=== PATIENT | male | born 1995 | race Caucasian/White ===

== ENCOUNTER 2024-05-02 16:53 | Emergency (ER) | payer OTHER ==
[~2024-05-02] VITALS: Ht 177.8 cm; Wt 106.0 kg
[2024-05-02 16:58] VITALS: O2SAT 99
[2024-05-02] MEDS ORDERED: ONDANSETRON 4MG ODT PO ONE (18:15)
[2024-05-02 19:54] LABS: BASOPHILS % 0.3 % (0.0-2.0); HEMATOCRIT. 45.5 % (42.0-52.0); HEMOGLOBIN. 15.4 g/dL (14.0-18.0); LYMPHOCYTES % 8.3 % (20.0-50.0); MEAN CORPUSCULAR HEMOGLOBIN 31.2 pg (28.0-32.0); MEAN CORPUSCULAR HGB CONC 33.8 g/dL (31.0-37.0); MEAN CORPUSCULAR VOLUME 92.4 fL (80.0-94.0); MEAN PLATELET VOLUME 9.1 fl (7.4-10.4); MONOCYTES % 3.1 % (2.0-8.0); NEUTROPHILS % 88.3 % (40.0-76.0); PLATELET 253 x1000/uL (130-400); RED BLOOD CELL COUNT 4.93 mill/uL (4.7-6.1); RED CELL DISTRIBUTION WIDTH 13.3 % (11.6-14.6); WHITE BLOOD COUNT 11.5 x1000/uL (4.5-11.0)
[2024-05-02 20:06] LABS: CHLORIDE 107 mEq/L (98-107); POTASSIUM 4.6 mEq/L (3.5-5.1); SODIUM 140 mEq/L (136-145)
[2024-05-02 20:07] LABS: CALCIUM 9.6 mg/dL (8.7-10.4); CARBON DIOXIDE 26 mEq/L (21-32)
[2024-05-02 20:12] LABS: CREATININE 1.1 mg/dL (0.6-1.3); GLUCOSE 126 mg/dL (70-105); UREA NITROGEN BLOOD 13 mg/dL (9-23)
[2024-05-02 20:14] LABS: ALANINE AMINOTRANSFERASE 44 IU/L (10-49); ALBUMIN 4.9 g/dL (3.2-4.8); ASPARTATE AMINOTRANSFERASE 29 IU/L (<34); BILIRUBIN TOTAL 0.7 mg/dL (0.1-1.0); PROTEIN TOTAL 7.6 g/dL (6.0-8.3)
[2024-05-02] MEDS: ONDANSETRON 4MG ODT PO NR (20:31)
[2024-05-02 20:54] LABS: CLARITY URINE CLEAR (CLEAR); COLOR URINE ORANGE (YELLOW); GLUCOSE URINE NEGATIVE (NEGATIVE); KETONES URINE 1+ (NEGATIVE); LEUKOCYTE ESTERASE URINE TRACE (NEGATIVE); NITRITE URINE NEGATIVE (NEGATIVE); OCCULT BLOOD URINE 3+ (NEGATIVE); PROTEIN URINE 1+ (NEGATIVE); SPECIFIC GRAVITY URINE 1.027 (1.005-1.030); UROBILINOGEN URINE 0.2 E.U./dL (0.2-1.0)
[2024-05-02] MEDS: LACTATED RINGERS 1,000 ML IV SCH (21:11)
[2024-05-02] MEDS: KETOROLAC 15MG/ML VIAL IV ONE (21:11)
[2024-05-02] MEDS: ONDANSETRON HCL 4MG/2ML INJ IV ONE (21:11)
[2024-05-02 21:29] LABS: BACTERIA URINE FEW; RBC URINE TNTC /hpf (0-2); SQUAMOUS EPITHELIAL CELL URINE NONE SEEN /lpf (RARE/1+)
[2024-05-02] MEDS ORDERED: KETO10TA2 MT (23:00)
[2024-05-02] MEDS ORDERED: ONDA4TAB11 PO (23:00)
[2024-05-02 23:11] VITALS: BP 135/76; PULSE 74; RESP 18; TEMP 98.3
== END 2024-05-02 23:14 | disposition home or self-care (01) ==
LOC: ER 16:53
DX: N20.0 Calculus of kidney (principal); Z90.49 Acquired absence of other specified parts of digestive tract
CPT/HCPCS: 80053; 81003; 85025; 36415; 74176; 96361; 96374; 96375; 99285; Q0162; J1885; J2405; Z7610